=== PATIENT | female | born 1970 | race American Indian/Alaskan Native ===

== ENCOUNTER 2021-11-04 11:53 | Emergency (ER) | payer SELFPAY ==
[2021-11-04] MEDS ORDERED: cefTRIAXone/NS 1 GM/50 ML 1 GM/50 ML BAG IV NR (13:18)
[2021-11-04] MEDS ORDERED: SODIUM CHLORIDE 0.9% 1000 ML 1,000 ML IV NR (13:18)
--- NOTE | 2021-11-04 13:19 | Emergency Department Report ---
ED ENT HPI - General Chief complaint: Dental/Oral Stated complaint: POSS ABCESS IN MOUTH Time Seen by Provider: 11/04/21 13:17 Source: patient Mode of arrival: Ambulatory Limitations: No Limitations - Related Data Previous Rx's Medication Instructions Recorded Last Taken Type Amoxicillin [Trimox CAP] 500 mg PO TID #30 capsule 11/04/21 Unknown Rx Allergies Allergy/AdvReac Type Severity Reaction Status Date / Time No Known Allergies Allergy Unverified 11/04/21 14:28 ED Dental HPI - General Chief complaint: Dental/Oral Stated complaint: POSS ABCESS IN MOUTH Time Seen by Provider: 11/04/21 13:17 Source: patient Mode of arrival: Ambulatory Limitations: No Limitations - Related Data Previous Rx's Medication Instructions Recorded Last Taken Type Amoxicillin [Trimox CAP] 500 mg PO TID #30 capsule 11/04/21 Unknown Rx Allergies Allergy/AdvReac Type Severity Reaction Status Date / Time No Known Allergies Allergy Unverified 11/04/21 14:28 ED Review of Systems ROS: Stated complaint: POSS ABCESS IN MOUTH Other details as noted in HPI Comment: All other systems reviewed and negative ED Past Medical Hx - Past Medical History Previous Medical History?: No - Surgical History Past Surgical History?: No - Family History Family history: no significant - Social History Smoking Status: Never Smoker Substance Use Type: None - Medications Home Medications: Home Medications Medication Instructions Recorded Confirmed Last Taken Type Amoxicillin [Trimox CAP] 500 mg PO TID #30 capsule 11/04/21 Unknown Rx ED Physical Exam - General Limitations: No Limitations General appearance: alert, in no apparent distress - Head Head exam: Present: atraumatic, normocephalic - Eye Eye exam: Present: normal appearance - ENT ENT exam: Present: mucous membranes moist - Neck Neck exam: Present: normal inspection - Respiratory Respiratory exam: Present: normal lung sounds bilaterally. Absent: respiratory distress - Cardiovascular Cardiovascular Exam: Present: regular rate, normal rhythm. Absent: systolic murmur, diastolic murmur, rubs, gallop - GI/Abdominal GI/Abdominal exam: Present: soft, normal bowel sounds - Extremities Exam Extremities exam: Present: normal inspection - Back Exam Back exam: Present: normal inspection - Neurological Exam Neurological exam: Present: alert, oriented X3 - Psychiatric Psychiatric exam: Present: normal affect, normal mood - Skin Skin exam: Present: warm, dry, intact, normal color. Absent: rash ED Course Vital Signs 11/04/21 12:37 Temperature 98.6 F Pulse Rate 110 H Respiratory 16 Rate Blood Pressure 164/120 O2 Sat by Pulse 98 Oximetry ED Medical Decision Making - Medical Decision Making Vital Signs 11/04/21 12:37 Temperature 98.6 F Pulse Rate 110 H Respiratory 16 Rate Blood Pressure 164/120 O2 Sat by Pulse 98 Oximetry Critical care attestation.: If time is entered above; I have spent that time in minutes in the direct care of this critically ill patient, excluding procedure time. ED Disposition Clinical Impression: Dental abscess Disposition: 01 HOME / SELF CARE / HOMELESS Is pt being admited?: No Does the pt Need Aspirin: No Condition: Stable Instructions: Skin Abscess Additional Instructions: MED ORDERED MOTRIN OR TYLENOL FOR PAIN STAY WELL HYDRATED WITH WATER FOLLOW UP WITH DENTIST [facility]FERR[facility] BELOW Prescriptions: Amoxicillin [Trimox CAP] 500 mg PO TID #30 capsule Referrals: [facility] [Outside] - 3-5 Days [facility] [Outside] - 3-5 Days [facility] [Outside] - 3-5 Days Time of Disposition: 13:59
[2021-11-04] MEDS ORDERED: methylPREDNISolone Sod Suc 500 MG in SODIUM CHLORIDE 0.9% 100 ML IV ONE (15:00)
[2021-11-04 17:13] VITALS: BP 162/100
== END 2021-11-04 17:15 | disposition home or self-care (01) ==
LOC: ED 11:53
DX: K04.7 Periapical abscess without sinus (principal); Z79.899 Other long term (current) drug therapy
CPT/HCPCS: 96365; 99283; J0696; J2930; J7030; 99282